=== PATIENT | female | born 1985 | race Caucasian/White ===

== ENCOUNTER 2024-11-05 21:40 | Emergency (ER) | payer BC ==
[2024-11-05] MEDS: Sodium Chloride 0.9% 1,000 ML IV ONE (22:20)
[2024-11-05] MEDS ORDERED: Prochlorperazine 10 MG in Sodium Chloride 0.9% 100 ML IV ONE (22:24)
[2024-11-05] MEDS: Ketorolac 15 MG/ML SDV IVPUSH ONE (22:34)
[2024-11-05] MEDS: Sodium Chloride 0.9% 10 ML Syringe FLUSH PRN (22:38)
[2024-11-05] MEDS: diphenhydrAMINE 50 MG/ML SDV IVPUSH ONE (22:38)
[2024-11-05] MEDS: Prochlorperazine 10 MG in Sodium Chloride 0.9% 100 ML IV ONE (22:45)
[2024-11-05] MEDS ORDERED: Prochlorperazine 10 MG/2 ML SDV IVPUSH ONE (22:45)
== END 2024-11-05 23:35 | disposition home or self-care (01) ==
LOC: LL.ED 21:40
DX: G43.909 Migraine, unspecified, not intractable, without status migrainosus (principal); E86.0 Dehydration; Z79.899 Other long term (current) drug therapy
CPT/HCPCS: 96365; 96375; 99283-25; 99284; J0780; J1200; J1885; J7030